=== PATIENT | female | born 1965 | race Caucasian/White ===

== ENCOUNTER 2022-04-03 15:42 | Day surgery (SDC) | payer MEDICAID, OTHER ==
[2022-04-03] MEDS ORDERED: XYLOCAINE-MPF 1% 5ML SDV IJ ONE (15:43)
[2022-04-03] MEDS ORDERED: Depo-Medrol 40 MG/ML IM ONE (15:43)
[2022-04-03] MEDS ORDERED: Marcaine Mpf 0.5% Vial 30 Ml IJ ONE (15:43)
--- NOTE | 2022-04-04 18:33 | XRAY ---
6 seconds fluoroscopy time in surgery for intra-articular injection of the right knee.
--- NOTE | 2022-04-04 18:34 | XRAY ---
8 seconds fluoroscopy time in surgery for intra-articular injection of the left knee.
--- NOTE | 2022-04-05 21:49 | XRAY ---
Indication: Left intra-articular knee injection. Intraoperative fluoroscopy provided for a seconds. Single spot image submitted for interpetation demonstrates needle tip projecting over the left intercondylar notch. Small amount of contrast injected for needle tip placement. Correlate with intraoperative findings/report.
--- NOTE | 2022-04-05 21:49 | XRAY ---
Indication: Right intra-articular knee injection. Intraoperative fluoroscopy provided for 6 seconds. Single spot image submitted for interpetation demonstrates needle tip projecting over the right intercondylar notch. Small amount of contrast injected for needle tip placement. Correlate with intraoperative findings/report.
== END 2022-04-03 17:25 | disposition home or self-care (01) ==
LOC: SDC-PAIN 15:42
PROVIDERS: ATTEND Psychiatry & Neurology Pain Medicine
DX: M17.0 Bilateral primary osteoarthritis of knee (principal); Z79.899 Other long term (current) drug therapy
CPT/HCPCS: 20610; 73560; 77002; J1030; Q9966

== ENCOUNTER 2022-07-31 15:40 | Day surgery (SDC) | payer OTHER ==
[2022-07-31] MEDS ORDERED: Xylocaine 1% Vial 30 ML PF IJ ONE (15:41)
[2022-07-31] MEDS ORDERED: BUPIVACAINE 0.5% VIAL IJ ONE (15:41)
[2022-07-31] MEDS ORDERED: Depo-Medrol 40 MG/ML IM ONE (15:41)
--- NOTE | 2022-07-31 19:21 | XRAY ---
Indication: Left knee injection. Intraoperative fluoroscopy provided for 9 seconds. Single digital spot image submitted for interpretation demonstrates needle tip projecting over the left femur intercondylar notch. Small amount of contrast injected for needle tip placement. Correlate with intraoperative findings/report.
--- NOTE | 2022-07-31 19:21 | XRAY ---
Indication: Right knee injection. Intraoperative fluoroscopy provided for 10 seconds. Single digital spot image submitted for interpretation demonstrates needle tip projecting over the right femur intercondylar notch. Small amount of contrast injected for needle tip placement. Correlate with intraoperative findings/report.
--- NOTE | 2022-08-01 10:47 | XRAY ---
10 seconds of fluoroscopy was used in surgery for a right knee intra-articular injection.
--- NOTE | 2022-08-01 10:47 | XRAY ---
9 seconds of fluoroscopy was used in surgery for a left knee intra-articular injection.
== END 2022-07-31 18:15 | disposition home or self-care (01) ==
LOC: SDC-PAIN 15:40
PROVIDERS: ATTEND Psychiatry & Neurology Pain Medicine
DX: M17.0 Bilateral primary osteoarthritis of knee (principal); Z79.899 Other long term (current) drug therapy
CPT/HCPCS: 20610; 73560; 77002; J1030; J2001; Q9966